=== PATIENT | female | born 1960 | race Two or more races ===

== ENCOUNTER → 2016-05-05 | Outpatient (CLI) | payer OTHER ==
--- NOTE | 2016-05-05 13:28 | KCIC ---
PROCEDURE AP chest radiograph. HISTORY Positive PPD. COMPARISON None. FINDINGS Cardiac silhouette appears within normal limits for size. No pneumothorax, pleural effusion, or focal consolidation is seen. No cavitary lesions are identified. Levoconvex scoliosis of the lower thoracic spine is seen. IMPRESSION No acute cardiopulmonary process. No evidence of active tuberculosis infection. Electronically signed by: John Pollock MD (May 05, 2016 13:27:22)
== END | disposition home or self-care (01) ==
LOC: KCIC 12:54
PROVIDERS: ATTEND Family Medicine
DX: R76.11 Nonspecific reaction to tuberculin skin test without active tuberculosis (principal)
CPT/HCPCS: 71010